=== PATIENT | male | born 1975 | race Caucasian/White ===

== ENCOUNTER 2020-04-07 11:20 | Emergency (ER) | payer MEDICAID, SELFPAY ==
[2020-04-07 11:32] VITALS: BP 153/100; PULSE 98; RESP 18; TEMP 36.8; O2SAT 99
--- NOTE | 2020-04-07 11:43 | ED.GENADUL_ITS ---
Discharge Plan Disposition Patient Disposition: HOME Condition: Stable Discharge Details Chief Complaint: Orthopedic Clinical Impression: Contusion of hand, left Primary Care Provider: None,None ED Provider: Giovanni Robbins Home Meds and New Rx's Prescriptions: New tramadol 100 mg tablet 100 mg PO BID PRN (Reason: pain) Qty: 7 RF: 0 Continued acetaminophen [Acetaminophen Extra Strength] 500 mg Tablet 1,000 mg PO Q4-5H RF: 0 ibuprofen 200 mg Tablet 800 mg PO Q6H PRNRF: 0 Discharge Instructions Instructions: Contusion in Adults (ED) Additional Instructions: Home to rest. Lalo bandage for comfort and support. Elevate above the level of the heart to reduce pain and swelling. May apply ice to reduce discomfort Continue Tylenol and/or ibuprofen as needed for pain, with tramadol as needed for breakthrough pain. We have placed your name on orthopedic follow-up list. Please call the clinic for an appointment time. The office #[phone]. Return to the emergency department for any acute concerns. 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 His fourth and fifth digits are held/healed in flexion. The long finger, ring finger and fifth digit are mildly ecchymotic and swollen. He states that the function is normal for him. Do not appreciate that he has ruptured any tendons. Referred for x-ray which showed no abnormalities other than nonstandard positioning. Most consistent with mild trauma and subsequent subcutaneous ecchymosis and swelling. Discussed immobilization with the patient and he resists attempt plaster splint. Placed in an Lalo bandage. The patient states he was distantly referred to orthopedics for repeat evaluation following his finger reattachment and I do feel this will be of some benefit. Will place him on orthopedic follow-up list. HPI General Mode of arrival: ambulatory . Date/Time Provider Initiated Documentation: 04/07/20 11:30 . Limitations to Documentation: no limitations . Information obtained by: patient . History of Present Illness 44 year old M presents to the emergency department with the chief complaint of Left hand pain after rope swing, described as moderate, Quality is described as dull, and is localized to the left and upper extremity. Patient reports no radiation. Patient started experiencing this hour(s) and it has been constant. No relieving factors improve symptom(s), No exacerbating factors reported . Patient notes denies fever/chills. Patient did receive the following treatments prior to arrival, none Related Data Home Medications Medication Instructions Recorded Confirmed acetaminophen [Acetaminophen Extra 1,000 mg PO Q4-5H 04/07/20 04/07/20 Strength] ibuprofen 800 mg PO Q6H PRN 04/07/20 04/07/20 tramadol 100 mg PO BID PRN #7 tab 04/07/20 Previous Rx's Medication Instructions Recorded tramadol 100 mg PO BID PRN #7 tab 04/07/20 Allergies Allergy/AdvReac Type Severity Reaction Status Date / Time No Known Allergies Allergy Unverified 04/07/20 11:36 General Stated Complaint: Orthopedic SIMEON: 3 Review of Systems Narrative: No other injury. 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 [facility] Social History Smoking/Tobacco Use Status: Never Alcohol Intake: never Drug use: Never Substance use type: does not use Exam Narrative Exam Narrative: GEN: awake, alert, oriented 3. Pleasant, well groomed, interactive. HEAD: Normocephalic, atraumatic NECK: Full ROM, no MEGAN, no menigismus EXT: Right upper extremity unremarkable. Left hand with fourth and fifth digits held in flexion, scarring present at the bases of fingers. Thumb, index, long finger with full range of motion, normal capillary refill. The fourth and fifth digits are bruised and swollen with pain on palpation, capillary fill less than 2 seconds. Sensation intact. Neuro: Grossly normal neurologic exam, conversant, interactive. Psych: Speech fluent, thoughts congruent, affect normal Course Vital Signs Vital signs: Vital Signs Temperature 36.8 C 04/07/20 11:32 Pulse 98 H 04/07/20 11:32 Respiratory Rate 18 04/07/20 11:32 Blood Pressure 153/100 H 04/07/20 11:32 Pulse Oximetry 99 04/07/20 11:32 Temperature 36.8 C 04/07/20 11:32 Temperature Source Temporal Artery Scan 04/07/20 11:32 Pulse 98 H 04/07/20 11:32 Respiratory Rate 18 04/07/20 11:32 Respiratory Effort Non-Labored 04/07/20 11:38 Blood Pressure 153/100 H 04/07/20 11:32 Pulse Oximetry 99 04/07/20 11:32 Oxygen Delivery Method Room Air 04/07/20 11:32 Oxygen Flow Rate 0 04/07/20 11:32 Pain Level 8 04/07/20 11:38
--- NOTE | 2020-04-07 12:00 | DI.RAD_ITS ---
EXAM: XR HAND LT COMPLETE CLINICAL HISTORY: L hand revious inj, repair. Pain and swelling. TECHNIQUE: 2D digital imaging was performed. COMPARISON: No exams were available for comparison FINDINGS: Exam is limited by finger flexion. The patient is unable to straighten the 4th and 5th fingers. The 2nd and 3rd fingers are mildly flexed. No fracture or dislocation is seen. IMPRESSION: No acute abnormality. DATA REPOSITORY: RADIATION DOSE DELIVERED:
--- NOTE | 2020-04-07 12:08 | DI.VRAD_ITS ---
PROCEDURE INFORMATION: Exam: XR Left Hand Exam date and time: 04/07/2020 11:58 AM Age: 44 years old Clinical indication: Patient HX: Patient injured left hand 2nd and 3rd digit completely bent unable to straighten. Pain at 4th digit. Best images obtained. TECHNIQUE: Imaging protocol: XR Left hand. Views: 3 or more views. COMPARISON: No relevant prior studies available. FINDINGS: Bones/joints: All bones are intact. No degenerative spur or osseous erosion. The 4th and 5th digits could not be extended. Soft tissues: No soft tissue foreign body or soft tissue mass. IMPRESSION: No abnormalities noted other than nonstandard positioning. Dictated and Authenticated by: Alin Knowles MD. Ordering:FRANKLIN Davila MD
[2020-04-07 12:30] VITALS: BP 143/93; PULSE 74; RESP 18; O2SAT 98
== END 2020-04-07 12:30 | disposition home or self-care (01) ==
LOC: ER 12:29
PROVIDERS: Emergency Provider Emergency Medicine
DX: S60.222A Contusion of left hand, initial encounter (principal); X50.9XXA Other and unspecified overexertion or strenuous movements or postures, initial encounter
CPT/HCPCS: 99283; 73130